=== PATIENT | male | born 1995 | race Caucasian/White ===

== ENCOUNTER 2018-02-03 13:37 | Emergency (ER) | payer OTHER ==
[2018-02-03 13:56] VITALS: BP 160/80; PULSE 123; RESP 16; TEMP 100.3; O2SAT 98
--- NOTE | 2018-02-03 14:56 | PD ---
HPI Chief Complaint: Cold / Flu Symptoms Time Seen by Provider: 14:55 Travel History International Travel<30 days: No Contact w/Intl Traveler<30days: No Traveled to known affect area: No History of Present Illness HPI 23-year-old -[place] male visiting from [place] for his spring break presents emergency department with 3 day history of nausea, vomiting, and sinus congestion with cough. Patient states crampy diarrhea as well. Patient states no appetite and inability to keep food or fluids down for the past 3 days. Patient has no specific point tenderness in his abdomen or flank tenderness. Patient denies chest pressure, pain, or shortness of breath. Patient has no history of colitis or diverticulitis in the past. Patient states no better today than he was yesterday. Patient denies sore throat. He does have headache. He has decreased urine output. He denies dysuria. Patient has no known drug allergies. [facility] Social History Alcohol Use: Yes Tobacco Use: No Substance Use: No Allergies-Medications (Allergen,Severity, Reaction): Coded Allergies: No Known Allergies (Unverified , 02/03/18) Review of Systems Except as stated in HPI: all other systems reviewed are Neg General / Constitutional: Positive: Fever, Chills Eyes: No: Visual changes HENT: Positive: Headaches, Lightheadedness (Mild), Rhinitis, Rhinorrhea, Congestion, No: Vertigo, Sore Throat, Nosebleed, Neck Stiffness, Neck Pain, Dental Difficulties, Earache Cardiovascular: No: Chest Pain or Discomfort Respiratory: Positive: Cough, No: Shortness of Breath, Wheezing, Sneezing Gastrointestinal: Positive: Nausea, Vomiting, Diarrhea, Abdominal Pain (See history of present illness per), Loss of Appetite, No: Indigestion, Dysphagia Genitourinary: No: Dysuria Musculoskeletal: No: Pain Skin: No Rash Neurologic: No: Weakness Psychiatric: No: Depression Endocrine: No: Polydipsia Hematologic/Lymphatic: No: Easy Bruising Physical Exam Narrative GENERAL: Patient appears in mild distress. SKIN: Warm and dry. Decreased pallor. Decreased turgor HEAD: Atraumatic. Normocephalic. EYES: Pupils equal and round. No scleral icterus. No injection or drainage. ENT: No nasal bleeding, but moderate yellow nasal discharge. Mucous membranes pink and dry. Posterior pharynx has cobblestoning and mild erythema with yellow postnasal drip noted. Patient has mild maxillary sinus tenderness with percussion. TMs are clear bilaterally. NECK: Trachea midline. Supple and nontender. CARDIOVASCULAR: Regular rate and rhythm. No murmurs gallops or rubs RESPIRATORY: No accessory muscle use. Clear to auscultation. Breath sounds equal bilaterally. GASTROINTESTINAL: Abdomen soft, mild diffuse tenderness without guarding or rebound, nondistended. Hepatic and splenic margins not palpable. No CVA tenderness. MUSCULOSKELETAL: Extremities without clubbing, cyanosis, or edema. No obvious deformities. NEUROLOGICAL: Awake and alert. No obvious cranial nerve deficits. Motor grossly within normal limits. Five out of 5 muscle strength in the arms and legs. Normal speech. PSYCHIATRIC: Appropriate mood and affect; insight and judgment normal. Data Data Last Documented VS Vital Signs Date Time Temp Pulse Resp B/P (MAP) Pulse Ox O2 Delivery O2 Flow Rate FiO2 02/03/18 15:40 100 Room Air 02/03/18 14:55 18 02/03/18 13:56 100.3 123 160/80 (106) Orders Orders Influenzae A/B Antigen (02/03/18 13:57) Complete Blood Count With Diff (02/03/18 15:00) Comprehensive Metabolic Panel (02/03/18 15:00) Lipase (02/03/18 15:00) Lactic Acid (02/03/18 15:00) Abdomen, Flat & Upright (02/03/18 ) Iv Access Insert/Monitor (02/03/18 15:00) Ecg Monitoring (02/03/18 15:00) Oximetry (02/03/18 15:00) Ondansetron Inj (Zofran Inj) (02/03/18 15:00) Sodium Chlor 0.9% 1000 Ml Inj (Ns 1000 M (02/03/18 15:00) Sodium Chloride 0.9% Flush (Ns Flush) (02/03/18 15:00) Chest, Single Ap (02/03/18 15:00) Ketorolac Inj (Toradol Inj) (02/03/18 15:00) Famotidine Inj (Pepcid Inj) (02/03/18 15:15) Labs Laboratory Tests Test 02/03/18 15:30 White Blood Count 10.9 TH/MM3 Red Blood Count 5.11 MIL/MM3 Hemoglobin 14.5 GM/DL Hematocrit 41.5 % Mean Corpuscular Volume 81.4 FL Mean Corpuscular Hemoglobin 28.4 PG Mean Corpuscular Hemoglobin Concent 34.9 % Red Cell Distribution Width 13.5 % Platelet Count 323 TH/MM3 Mean Platelet Volume 8.0 FL Neutrophils (%) (Auto) 81.0 % Lymphocytes (%) (Auto) 5.3 % Monocytes (%) (Auto) 13.6 % Eosinophils (%) (Auto) 0.0 % Basophils (%) (Auto) 0.1 % Neutrophils # (Auto) 8.9 TH/MM3 Lymphocytes # (Auto) 0.6 TH/MM3 Monocytes # (Auto) 1.5 TH/MM3 Eosinophils # (Auto) 0.0 TH/MM3 Basophils # (Auto) 0.0 TH/MM3 CBC Comment DIFF FINAL Differential Comment Blood Urea Nitrogen 11 MG/DL Creatinine 1.27 MG/DL Random Glucose 94 MG/DL Total Protein 9.2 GM/DL Albumin 3.7 GM/DL Calcium Level 8.9 MG/DL Alkaline Phosphatase 53 U/L Aspartate Amino Transf (AST/SGOT) 50 U/L Alanine Aminotransferase (ALT/SGPT) 49 U/L Total Bilirubin 0.7 MG/DL Sodium Level 132 MEQ/L Potassium Level 4.3 MEQ/L Chloride Level 99 MEQ/L Carbon Dioxide Level 24.1 MEQ/L Anion Gap 9 MEQ/L Estimat Glomerular Filtration Rate 72 ML/MIN Lactic Acid Level 0.8 mmol/L Lipase 79 U/L [facility] Medical Decision Making Medical Screen Exam Complete: Yes Emergency Medical Condition: Yes Differential Diagnosis Flu. Gastroenteritis. Nausea. Vomiting. Diarrhea. Narrative Course Patient appears ill but medically stable. Rapid influenza test is negative. Labs ordered including CBC, CMP, lactic acid, lipase and urinalysis Chest x-ray is ordered. Abdominal flat and upright is ordered. IV access is obtained the patient is given 4 mg Zofran IV as well as 30 mg ketorolac IV. Patient is given 20 mg Pepcid IV. Patient given 1000 mL of normal saline bolus 2. Chest x-ray is unremarkable Abdominal x-ray is unremarkable for acute process per radiologist. CBC is unremarkable. CMP shows sodium 132, otherwise unremarkable. Lactic acid normal 0.8 AST slightly elevated at 50, protein is 9.2 Patient was reevaluated and felt to be much improved Patient is felt to have a viral gastroenteritis as well as sinus allergies Patient will be treated with Zofran 4 mg every 6 hours as needed nausea #20. Patient also given Flonase nasal spray 2 sprays each nostril daily. Patient tried [id number] allergy medication as well as needed. Patient is to rest and push fluids as discussed and return if symptoms worsen as needed. Diagnosis Primary Impression: Gastroenteritis and colitis, viral Additional Impression: Allergic rhinitis Qualified Codes: J30.1 - Allergic rhinitis due to pollen Patient Instructions: Acute Diarrhea (ED), Acute Nausea and Vomiting (ED), Allergic Rhinitis (ED), General Instructions Additional Instructions: Chest x-ray is unremarkable Abdominal x-ray is unremarkable for acute process per radiologist. CBC is unremarkable. CMP shows sodium 132, otherwise unremarkable. Lactic acid normal 0.8 AST slightly elevated at 50, protein is 9.2 Patient was reevaluated and felt to be much improved Patient is felt to have a viral gastroenteritis as well as sinus allergies Patient will be treated with Zofran 4 mg every 6 hours as needed nausea #20. Patient also given Flonase nasal spray 2 sprays each nostril daily. Patient tried [id number] allergy medication as well as needed. Patient is to rest and push fluids as discussed and return if symptoms worsen as needed. Med/Other Pt SpecificInfo: Prescription(s) given Scripts Fluticasone Nasal Lane (Flonase Nasal Lane) 50 Mcg/Act Lane 100 MCG EACH NARE BID for Allergies, #1 BOTTLE 0 Refills Prov: Rony Cummings MD 02/03/18 Ondansetron (Zofran) 4 Mg Tab 4 MG PO Q6HR Y for NAUSEA OR VOMITING, #20 TAB 0 Refills Prov: Rony Cummings MD 02/03/18 Disposition: 01 DISCHARGE HOME Condition: Stable Phi Loyd Feb 03, 2018 14:55
[2018-02-03] MEDS ORDERED: ONDANSETRON HCL 4 MG/2 ML VIAL IVP ONE (15:00)
[2018-02-03] MEDS ORDERED: SODIUM CHLORIDE 0.9% FLUSH 10 ML FLUSH IV FLUSH PRN (15:00)
[2018-02-03] MEDS ORDERED: KETOROLAC TROMETHAMINE 30 MG/ML (IVP) VIAL IVP ONE (15:00)
[2018-02-03] MEDS ORDERED: FAMOTIDINE 20 MG/2 ML VIAL IV PUSH ONE (15:15)
--- NOTE | 2018-02-03 15:32 | RADRPT ---
EXAM DATE/TIME: 02/03/2018 15:14 [facility] COMPARISON: No previous studies available for comparison. INDICATIONS : Flu like symptoms. Fever, productive cough, and vomiting. MEDICAL HISTORY : None. SURGICAL HISTORY : None. ENCOUNTER: Initial ACUITY: 1 day PAIN SCORE: 0/10 LOCATION: Bilateral chest FINDINGS: A single view of the chest demonstrates the lungs to be symmetrically aerated without evidence of mas s, infiltrate or effusion. The cardiomediastinal contours are unremarkable. Osseous structures are intact. CONCLUSION: Normal examination for a patient of this age. Maximiliano Chahal MD on February 03, 2018 at 15:30 Board Certified Radiologist. This report was verified electronically.
--- NOTE | 2018-02-03 15:33 | RADRPT ---
EXAM DATE/TIME: 02/03/2018 15:15 [facility] COMPARISON: No previous studies available for comparison. INDICATIONS : Flu like symptoms. Fever, productive cough, and vomiting. MEDICAL HISTORY : None. SURGICAL HISTORY : None. ENCOUNTER: Initial ACUITY: 3 days PAIN SCORE: 0/10 LOCATION: Bilateral Abdomen FINDINGS: Supine and upright views of the abdomen were performed. The abdominal bowel gas pattern is normal. No air fluid levels are seen. No abnormal masses, calcifications, or organomegaly is seen. The visu alized lower lungs are clear. No evidence of free intraperitoneal gas. The osseous structures are u nremarkable. CONCLUSION: Normal examination for a patient of this age. Maximiliano Chahal MD on February 03, 2018 at 15:31 Board Certified Radiologist. This report was verified electronically.
[2018-02-03 15:40] VITALS: O2SAT 100
[2018-02-03] MEDS: SODIUM CHLOR 0.9% 1000 ML INJ 1,000 ML IV SCH ×2 (15:46→16:57)
[2018-02-03 16:28] LABS: AUTOMATED NEUTROPHIL # 8.9 TH/MM3 (1.8-7.7); BASOPHIL % 0.1 % (0.0-2.0); HEMATOCRIT 41.5 % (39.0-51.0); HEMOGLOBIN 14.5 GM/DL (13.0-17.0); LYMPH % 5.3 % (9.0-44.0); LYMPHOCYTE # 0.6 TH/MM3 (1.0-4.8); MEAN CELL VOLUME 81.4 FL (80.0-100.0); MEAN CORPUSCULAR HEMOGLOBIN 28.4 PG (27.0-34.0); MEAN CORPUSCULAR HGB CONC 34.9 % (32.0-36.0); MONO % 13.6 % (0.0-8.0); MONOCYTE # 1.5 TH/MM3 (0-0.9); PLATELET COUNT 323 TH/MM3 (150-450); RED BLOOD COUNT 5.11 MIL/MM3 (4.50-5.90); RED CELL DISTRIBUTION WIDTH 13.5 % (11.6-17.2); WHITE BLOOD COUNT 10.9 TH/MM3 (4.0-11.0)
[2018-02-03 16:37] LABS: ALKALINE PHOSPHATASE 53 U/L (45-117); TOTAL BILIRUBIN ADULT 0.7 MG/DL (0.2-1.0); TOTAL PROTEIN 9.2 GM/DL (6.4-8.2)
[2018-02-03 16:42] LABS: ALBUMIN 3.7 GM/DL (3.4-5.0); ALT (GPT) 49 U/L (12-78); AST (GOT) 50 U/L (15-37); BICARBONATE 24.1 MEQ/L (21.0-32.0); BLOOD UREA NITROGEN 11 MG/DL (7-18); CALCIUM 8.9 MG/DL (8.5-10.1); CHLORIDE 99 MEQ/L (98-107); CREATININE 1.27 MG/DL (0.60-1.30); GLOMERULAR FILTRATION RATE 72 ML/MIN (>89); GLUCOSE,RANDOM 94 MG/DL (74-106); SODIUM (NA) 132 MEQ/L (136-145)
[2018-02-03] MEDS ORDERED: ZOFR4TAB PO (18:12)
[2018-02-03] MEDS ORDERED: FLUT1SPR5 EACH NARE (18:12)
== END 2018-02-03 18:32 | disposition home or self-care (01) ==
LOC: NEPD 13:37
DX: A08.4 Viral intestinal infection, unspecified (principal); J30.1 Allergic rhinitis due to pollen
CPT/HCPCS: 71045; 74019; 80053; 83605; 83690; 85025; 87804; 96361; 96374; 96375; 99285; J1885; J2405; J7030